=== PATIENT | female | born 1990 | race Two or more races ===

== ENCOUNTER 2018-10-18 05:53 | Emergency (ER) | payer MEDICAID ==
[~2018-10-18] VITALS: Ht 152.4 cm; Wt 63.0 kg
[~2018-10-18 05:53] MED LIST: BIRTH CONTROL
[2018-10-18] MEDS ORDERED: NKM (06:03)
--- NOTE | 2018-10-18 06:14 | Emergency Room Report ---
History of Present Illness General Chief Complaint: Dizziness Source: Patient (Seth Dewey MD) Present Illness HPI Patient is a 28-year-old female who presented after increased dizziness and vomiting. Patient was noted to have prior history of no prior medical history. She denies being . Patient reports having increased vertigo sensation with movements of her head to the right. Patient denies any hearing loss. She denies any recent alcohol use. (Seth Dewey MD) Allergies: Coded Allergies: No Known Allergies (Unverified , 12/26/13) Patient History Last Menstrual Period: sep Now: No (Seth Dewey MD) Nursing Documentation-[facility] Past Medical History: No Stated History (Seth Dewey MD) Physical Exam Vital Signs Date Time Temp Pulse Resp B/P (MAP) Pulse Ox O2 Delivery O2 Flow Rate FiO2 10/18/18 05:59 97.9 85 16 134/81 98 Room Air Sp02 EP Interpretation: reviewed, normal General Appearance: normal inspection, well appearing, no apparent distress, alert, GCS 15, non-toxic Head: atraumatic ENT: normal ENT inspection, hearing grossly normal, normal voice Neck: normal inspection, full range of motion, supple, no bony tend Respiratory: normal inspection, lungs clear, normal breath sounds, no respiratory distress, no retraction, no wheezing Cardiovascular #1: regular rate, rhythm, no edema Gastrointestinal: normal inspection, normal bowel sounds, non tender, soft, no guarding, no hernia Genitourinary: no CVA tenderness Musculoskeletal: normal inspection, back normal, normal range of motion Neurologic: normal inspection, alert, oriented x3, responsive, melting operator III-XII nml as tested, speech normal Psychiatric: normal inspection, judgement/insight normal, mood/affect normal Skin: normal inspection, normal color, no rash (Seth Dewey MD) Medical Decision Making Diagnostic Impression: Primary Impression: Dizziness Additional Impression: Vertigo ER Course Patient presented for vertigo. Differential diagnosis include was not limited to CVA, benign positional vertigo, labyrinthitis, head injury among others. Because of complexity of patient's case laboratory testing and imaging studies were ordered. Patient was noted to have some vertigo sensation worse with head movements. Laboratory testing was ordered due to patient's acute onset of symptoms and questionable neurologic findings. (Seth Dewey MD) ER Course Hospital Course 28 yo F presents with dizziness, nausea Clinical course Patient initially seen and evaluated by Dr. Dewey. Please see his note for full history and physical labs reviewed- noted leukocytosis, hemoglobin/hematocrit stable, electrolytes okay, UA negative CT brain negative given additional dose of meclizine, reglan Upon reassessment patient states symptoms have improved. Clinical findings consistent with vertigo. Safe for discharge with close outpatient follow-up. Does not have a PMD. We' ll provide referrals. given aftercare instructions on [facility]. I feel this is a highly complex case requiring extensive working including EKG/Rhythm strip, Xray/CT/US, Blood/urine lab work, repeat exams while in ED, and administration of strong opiates/narcotics for pain control, admission to hospital or close patient follow up. Diagnosis - vertigo, dizziness stable and discharged to home with prescription for meclizine, zofran. Followup with PMD. Return to ED if symptoms recur or worsen Labs Test 10/18/18 06:03 White Blood Count 14.1 K/UL (4.8-10.8) Red Blood Count 4.76 M/UL (4.20-5.40) Hemoglobin 14.1 G/DL (12.0-16.0) Hematocrit 41.2 % (37.0-47.0) Mean Corpuscular Volume 87 FL (80-99) Mean Corpuscular Hemoglobin 29.7 PG (27.0-31.0) Mean Corpuscular Hemoglobin Concent 34.3 G/DL (32.0-36.0) Red Cell Distribution Width 11.6 % (11.6-14.8) Platelet Count 245 K/UL (150-450) Mean Platelet Volume 9.0 FL (6.5-10.1) Neutrophils (%) (Auto) 75.2 % (45.0-75.0) Lymphocytes (%) (Auto) 16.0 % (20.0-45.0) Monocytes (%) (Auto) 7.2 % (1.0-10.0) Eosinophils (%) (Auto) 1.1 % (0.0-3.0) Basophils (%) (Auto) 0.6 % (0.0-2.0) Prothrombin Time 10.7 SEC (9.30-11.50) Prothromb Time International Ratio 1.0 (0.9-1.1) Activated Partial Thromboplast Time 24 SEC (23-33) Urine Color Pale yellow Urine Appearance Slightly cloudy Urine pH 5 (4.5-8.0) Urine Specific [place] 1.015 (1.005-1.035) Urine Protein 2+ (NEGATIVE) Urine Glucose (UA) Negative (NEGATIVE) Urine Ketones Negative (NEGATIVE) Urine Blood 3+ (NEGATIVE) Urine Nitrite Negative (NEGATIVE) Urine Bilirubin Negative (NEGATIVE) Urine Urobilinogen Normal MG/DL (0.0-1.0) Urine Leukocyte Esterase 1+ (NEGATIVE) Urine RBC 2-4 /HPF (0 - 2) Urine WBC 0-2 /HPF (0 - 2) Urine Squamous Epithelial Cells Few /LPF (NONE/OCC) Urine Bacteria Few /HPF (NONE) Urine HCG, Qualitative Negative (NEGATIVE) Sodium Level 138 MMOL/L (136-145) Potassium Level 3.6 MMOL/L (3.5-5.1) Chloride Level 105 MMOL/L (98-107) Carbon Dioxide Level 26 MMOL/L (21-32) Anion Gap 8 mmol/L (5-15) Blood Urea Nitrogen 15 mg/dL (7-18) Creatinine 0.7 MG/DL (0.55-1.30) Estimat Glomerular Filtration Rate > 60 mL/min (>60) Glucose Level 105 MG/DL (74-106) Calcium Level 9.5 MG/DL (8.5-10.1) Total Bilirubin 0.4 MG/DL (0.2-1.0) Aspartate Amino Transf (AST/SGOT) 17 U/L (15-37) Alanine Aminotransferase (ALT/SGPT) 30 U/L (12-78) Alkaline Phosphatase 62 U/L (46-116) Total Protein 7.8 G/DL (6.4-8.2) Albumin 3.8 G/DL (3.4-5.0) Globulin 4.0 g/dL Albumin/Globulin Ratio 0.9 (1.0-2.7) (Benji Pulido MD) CT/MRI/US Diagnostic Results CT/MRI/US Diagnostic Results : Imaging Test Ordered: CT head Impression no acute process (verbal reading by Dr Campos, as PACS is not working) (Benji Pulido MD) Last Vital Signs Date Time Temp Pulse Resp B/P (MAP) Pulse Ox O2 Delivery O2 Flow Rate FiO2 10/18/18 05:59 97.9 85 16 134/81 98 Room Air (Seth Dewey MD) Status: improved (Benji Pulido MD) Disposition: HOME, SELF-CARE Condition: Stable Scripts Meclizine Hcl* (VERTICALM*) 25 Mg Tablet 25 MG ORAL THREE TIMES A DAY for 5 Days, TAB Prov: Benji Pulido MD 10/18/18 Ondansetron Odt* (ZOFRAN ODT*) 4 Mg Tab.rapdis 4 MG BC EVERY 6 HOURS PRN for Nausea & Vomiting, #10 TAB 0 Refills Prov: Benji Pulido MD 10/18/18 Seth Dewey MD Oct 18, 2018 06:14 Benji Pulido MD Oct 18, 2018 09:14
--- NOTE | 2018-10-18 06:15 | NUR ---
ED Nurse Note: RECIEVED PT ON LB FROM HOME AWAKE, ALERT AND ORIENTED X 4, PT HERE WITH C/O NAUSEA WITH VOMITING FOR 1 DAY, PT DENIES , CP, SOB, OR ANY OTHER COMPLAINTS OR DISCOMFORTS, PT GOWNED, URINE SAMPLE COLLECTED AND SENT, PLACED ON CARDIAC MONITORING, AND LINE PLACED AND LABS DRAWN, WILL RESUME CARE ORDERED AND CONTINUE TO CLOSELY MONITOR.
[2018-10-18] MEDS ORDERED: Meclizine 25mg tab ORAL ONE ×2 (06:30→08:45)
[2018-10-18 06:49] LABS: APPEARANCE,URINE SLIGHTLY CLOUDY; BILIRUBIN, URINE NEGATIVE (NEGATIVE); COLOR,URINE PALE YELLOW; GLUCOSE, URINE (UA) NEGATIVE (NEGATIVE); KETONES,URINE NEGATIVE (NEGATIVE); LEUKOCYTE ESTERASE ,URINE 1+ (NEGATIVE); NITRITE,URINE NEGATIVE (NEGATIVE); PH,URINE 5 (4.5-8.0); PROTEIN,URINE 2+ (NEGATIVE); UROBILINOGEN,URINE NORMAL MG/DL (0.0-1.0)
--- NOTE | 2018-10-18 06:50 | NUR ---
ED Nurse Note: PT LINE PLACED AND LABS DRAWN, PT IS CURRENTLY BEING TAKEN TO IMAGING, WILL RESUME CARE WHEN PT RETURNS TO DEPARTMENT.
[2018-10-18 07:00] LABS: ANION GAP 8 mmol/L (5-15); BASOPHILS % (AUTO) 0.6 % (0.0-2.0); BLOOD UREA NITROGEN 15 mg/dL (7-18); CALCIUM 9.5 MG/DL (8.5-10.1); CARBON DIOXIDE 26 MMOL/L (21-32); CHLORIDE 105 MMOL/L (98-107); CREATININE 0.7 MG/DL (0.55-1.30); EOSINOPHILS % (AUTO) 1.1 % (0.0-3.0); HEMATOCRIT 41.2 % (37.0-47.0); HEMOGLOBIN 14.1 G/DL (12.0-16.0); MEAN CORPUSCULAR VOLUME 87 FL (80-99); MONOCYTES % (AUTO) 7.2 % (1.0-10.0); NEUTROPHILS % (AUTO) 75.2 % (45.0-75.0); PLATELET COUNT 245 K/UL (150-450); POTASSIUM 3.6 MMOL/L (3.5-5.1); RED BLOOD COUNT 4.76 M/UL (4.20-5.40); RED CELL DISTRIBUTION WIDTH 11.6 % (11.6-14.8); SODIUM 138 MMOL/L (136-145); WHITE BLOOD COUNT 14.1 K/UL (4.8-10.8)
[2018-10-18 07:05] LABS: ALANINE AMINOTRANSFERASE 30 U/L (12-78); ALBUMIN 3.8 G/DL (3.4-5.0); ALBUMIN/GLOBULIN RATIO 0.9 (1.0-2.7); ALKALINE PHOSPHATASE 62 U/L (46-116); ASPARTATE AMINO TRANSFERASE 17 U/L (15-37); BILIRUBIN,TOTAL 0.4 MG/DL (0.2-1.0)
--- NOTE | 2018-10-18 07:20 | NUR ---
ED Nurse Note: patient came back from CT scan. Connected to the monitor, VSS, see flowsheet. a/o x4, by the bedside.
[2018-10-18] MEDS ORDERED: Meclizine 25mg tab ONE ×2 (07:23→08:45)
[2018-10-18 07:30] VITALS: BP 111/81
[2018-10-18] MEDS ORDERED: VERTICALM25 MG ORAL (08:44)
[2018-10-18] MEDS ORDERED: ONDANSETRON ODT4 MG BC (08:44)
[2018-10-18] MEDS ORDERED: Metoclopramide 10mg/2ml Inj IVP ONE (08:45)
[2018-10-18] MEDS ORDERED: Metoclopramide 10mg/2ml Inj ONE (08:46)
--- NOTE | 2018-10-18 08:54 | NUR ---
ER DISCHARGE NOTE: Patient is cleared to be discharged per ERMD, pt is aox4, on room air, with stable vital signs. pt was given dc and prescription instructions, pt was able to verbalize understanding, pt id band and iv site removed without complications. pt is able to ambulate with steady gait escorted by her . pt took all belongings.
[2018-10-18 08:57] VITALS: BP 111/81
--- NOTE | 2018-10-19 09:32 | Diagnostic Imaging Report ---
Indications: Dizzy and headache for one day Technique: Spiral acquisitions obtained through the brain. Angled axial and coronal 5 x 5 mm slices were reconstructed. Total dose length product 1478 mGycm. CTDI vol(s) 70 mGy. Dose reduction achieved using automated exposure control Comparison: None. Findings: No acute intrarenal hemorrhage or edema, mass effect, nor midline shift. Normal bustamante-white differentiation. Normal-sized ventricles and extra axial CSF spaces. Mastoids are clear. Visualized orbits and sinuses are unremarkable. The calvarium is intact Impression: Negative Handwritten preliminary report previously provided to the emergency room via the PACS The CT scanner at [facility] is accredited by the [employer] and the scans are performed using protocols designed to limit radiation exposure to as low as reasonably achievable to attain images of sufficient resolution adequate for diagnostic evaluation.
== END 2018-10-18 08:54 | disposition home or self-care (01) ==
LOC: EMR 06:31
DX: R42 Dizziness and giddiness (principal); R11.10 Vomiting, unspecified
CPT/HCPCS: 36415; 70450; 80053; 81001; 81025; 85025; 85610; 85730; 96374; 96375; 99284; J2405; J2765; J7040